=== PATIENT | female | born 1995 | race Caucasian/White ===

== ENCOUNTER 2022-07-23 17:04 | Outpatient (CLI) | payer OTHER, SELFPAY ==
--- NOTE | 2022-07-23 17:00 | CRLHL7_ITS ---
For Patients: As a result of the Cures Act, medical imaging exams and procedure reports are released immediately into your electronic medical record. You may view this report before your referring provider. If you have questions, please contact your health care provider. INDICATION: First trimester scan, establish dates. COMPARISON: None. TECHNIQUE: Real-time kaur-scale imaging of the pelvis was performed. FINDINGS: Sonographic imaging demonstrates a single living intrauterine gestation. The embryo demonstrates a regular cardiac rate measuring 154 beats per minute. The embryo`s crown-rump length measurement of 1.9 cm corresponds to a gestational age of 8 weeks 3 days with a sonographic due date of 03/01/2023. There is a yolk sac present measuring 4 millimeters. There are no gross abnormalities noted within the embryo at this early state of development. The gestational sac has a normal appearance. There is no evidence of a perigestational hemorrhage. The amount of fluid within the sac appears appropriate for gestational age. The cervix is closed. The myometrium appears normal. Simple right ovarian cyst is present with anechoic internal echotexture measuring 1.3 cm. There is a calcified right ovarian cyst with associated shadowing measuring 2.7 cm likely representing dermoid. Probable corpus luteal cyst left ovary measuring 3 cm. There are no suspicious fluid collections noted in the cul-de-sac. IMPRESSION: Single living intrauterine with sonographic gestational age 8 weeks 3 days and sonographic due date of 03/01/2023. Dictated by Surya Xiao MD @ 07/24/2022 9:19:27 AM (Electronically Signed)
== END 2022-07-23 17:05 | disposition home or self-care (01) ==
LOC: US 17:05
PROVIDERS: Visit Provider Physician Assistant
DX: Z34.91 Encounter for supervision of normal pregnancy, unspecified, first trimester (principal)
CPT/HCPCS: 76817

== ENCOUNTER 2022-07-23 17:56 | Outpatient (CLI) | payer OTHER, SELFPAY ==
[2022-07-23 20:47] LABS: Hepatitis B Surface Antigen* Negative (Negative)
[2022-07-23 20:58] LABS: HIV 1/2/P24 Combo Screen* Negative (Negative)
[2022-07-23 21:05] LABS: Hepatitis C Virus Antibody* Negative (Negative)
[2022-07-23 22:14] LABS: Chlamydia DNA Amplified* Not Detected (No Detected); GC DNA Amplified* Not Detected (No Detected)
[2022-07-25 16:57] LABS: Varicella-Zoster Virus Ab, IgG 996.4 IV
[2022-07-25 17:03] LABS: Rubella Antibody IgG 46.8 IU/mL
[2022-07-25 17:54] LABS: Rapid Plasma Reagin (RPR) Non Reactive (Non Reactive)
== END 2022-07-23 17:57 | disposition home or self-care (01) ==
PROVIDERS: Visit Provider Physician Assistant
DX: Z34.90 Encounter for supervision of normal pregnancy, unspecified, unspecified trimester (principal)
CPT/HCPCS: 86592; 86703; 86762; 86787; 86803; 86850; 86900; 86901; 87086; 87340; 87491; 87591; 88174

== ENCOUNTER 2022-07-29 14:26 | Outpatient (CLI) | payer OTHER, SELFPAY ==
[2022-07-29 15:01] LABS: Iron* 37 ug/dL (37-170)
[2022-07-29 15:38] LABS: Ferritin* 6.4 ng/mL (6.24-137.0)
== END 2022-07-29 14:27 | disposition home or self-care (01) ==
PROVIDERS: Visit Provider Physician Assistant
DX: O99.011 Anemia complicating pregnancy, first trimester (principal)
CPT/HCPCS: 82728; 83540

== ENCOUNTER 2022-08-27 18:22 | Outpatient (CLI) | payer OTHER, SELFPAY | END 2022-08-27 18:23 | disposition home or self-care (01) | PROVIDERS: Visit Provider Registered Nurse | DX: Z34.90 Encounter for supervision of normal pregnancy, unspecified, unspecified trimester (principal); Z12.4 Encounter for screening for malignant neoplasm of cervix | CPT/HCPCS: 87624; 88175 ==

== ENCOUNTER 2022-10-15 16:05 | Outpatient (CLI) | payer OTHER, SELFPAY ==
--- NOTE | 2022-10-15 16:00 | CRLHL7_ITS ---
For Patients: As a result of the Century Cures Act, medical imaging exams and procedure reports are released immediately into your electronic medical record. You may view this report before your referring provider. If you have questions, please contact your health care provider. INDICATION: Evaluate anatomy. COMPARISON: 07/23/2022 TECHNIQUE: Real time kaur scale imaging of the fetus was performed as well as color Doppler analysis of the umbilical vessels. FINDINGS: Sonographic imaging demonstrates a single living intrauterine gestation. Fetus demonstrates a regular cardiac rate of 133 beats per minute. Fetus has a vertex position. The placenta lies posteriorly without evidence of placenta previa. The edge of the placenta is located 4.9 cm from the internal cervical os. Amniotic fluid volume appears normal. Single deepest vertical pocket: 4.9 cm. The cervix is closed and measures 3.7 cm in length. The composite ultrasound gestational age is calculated at 20 weeks 2 days with an estimated sonographic due date of 03/02/2023. The estimated weight is 368 grams which lies at the 58th %. The following biometric measurements were obtained: Biparietal diameter: 4.5 cm/19 weeks 5 days 21st% Head circumference: 17.4 cm/19 weeks 6 days 20th% Abdominal circumference: 15.9 cm/21 weeks 0 days 64th% Femur length: 3.4 cm/20 weeks 3 days 44th% The HC/AC ratio measures: 1.09 range (1.07-1.25) On anatomic survey, there is a normal appearance of the cerebral ventricles, cavum septi pellucidi, cisterna magna and cerebellum. The nose, lips, and facial profile appear normal. The cervical, thoracic and lumbar spine are well visualized and appear normal. There is a normal four-chamber heart view and the left and right ventricular outflow tracts appear normal. The diaphragm and stomach appear normal. Bladder is normal. Bilateral pelviectasis is present measuring 4.9 millimeters on the right and 4.5 millimeters on the left. There is a normal three-vessel cord and cord insertion site. The four extremities appear normal. IMPRESSION: Concordance of clinical and sonographic dating. Bilateral renal pelviectasis measuring up to 4.5-4.9 millimeters. Options for follow-up include level 2 ultrasound or follow-up in the 3rd trimester. Remainder of the anatomic survey is normal. Dictated by Surya Xiao MD @ 10/16/2022 9:25:30 AM (Electronically Signed)
== END 2022-10-15 16:06 | disposition home or self-care (01) ==
LOC: US 16:06
PROVIDERS: Visit Provider Physician Assistant
DX: Z34.92 Encounter for supervision of normal pregnancy, unspecified, second trimester (principal); Z3A.20 20 weeks gestation of pregnancy
CPT/HCPCS: 76805

== ENCOUNTER 2022-10-15 17:29 | Outpatient (CLI) | payer OTHER, SELFPAY ==
[2022-10-15 23:22] LABS: Free T4 Free Thyroxine* 0.93 ng/dL (0.70-1.85)
== END 2022-10-15 17:30 | disposition home or self-care (01) ==
LOC: NFLDREF 17:29
PROVIDERS: Visit Provider Physician Assistant
DX: L65.9 Nonscarring hair loss, unspecified (principal)
CPT/HCPCS: 84439; 84443

== ENCOUNTER 2022-11-13 08:25 | Outpatient (CLI) | payer OTHER, SELFPAY ==
[2022-11-13 12:58] LABS: Free T4 Free Thyroxine* 1.02 ng/dL (0.70-1.85)
== END 2022-11-13 08:26 | disposition home or self-care (01) ==
PROVIDERS: Visit Provider Obstetrics & Gynecology
DX: E03.9 Hypothyroidism, unspecified (principal); Z34.90 Encounter for supervision of normal pregnancy, unspecified, unspecified trimester
CPT/HCPCS: 84439; 84443